=== PATIENT | female | born 1980 | race Native Hawaiian/Other Pacific Islander ===

== ENCOUNTER 2016-10-27 23:02 | Inpatient (IN) | payer OTHER ==
[2016-10-27 23:07] VITALS: BMI 25.5
--- NOTE | 2016-10-27 23:09 | OBHP ---
Datetime: 10/27/2016 23:05 IP Adm Impression: Term, intrauterine ; No Active Labor; Ruptured Membranes IP Admit Plan: Admit to unit; Initiate labor protocol Admit Comment, IP Provider: at 39+weeks came with c/o srom at 9.15 pn, no ctxs, vb, +fm. obhx 1 x pmh de med pnv all nkda psh de soch de sse +pooling,+nitrazine a/p at 39weeks with prom. admit to l_d npo/ivf labs cytotec cont daren and efm pain reuben anticipay Pelvic Type - PN: Adequate Extremities - PN: Normal Abdomen - PN: Normal Back - PN: Normal Breast - PN: Normal Lungs - PN: Normal Heart - PN: Normal Thyroid - PN: Normal Neurologic - PN: Normal HEENT - PN: Normal General - PN: Normal FHR - Baseline A Provider: 130 Amniotic Fluid Color, Provider: Clear Membranes, Provider: Ruptured Contraction Comments Provider: occ Comments, ACOG Physical Exam: gravid,non ext no edema,no calf ten Pool Provider: Positive Nitrazine Provider: Positive IP Hx Assessment: The History has been Reviewed and is Current Vital Signs Provider: Reviewed; Within Normal Limits IP Chief Complaint: Suspected ruptured membranes NICHD Variability Prov Fetus A: Moderate 6-25bpm NICHD Accel Fetus A IP Provider: [id number] FHR Category Provider Fetus A: Category I Dilatation, Provider: 1 Effacement, Provider: 50 Station, Provider: -3 Genitourinary Exam: Normal DTRs - PN: Normal
[2016-10-27] MEDS ORDERED: Nalbuphine 20 mg/ml Inj (1 ml) IVP PRN (23:15)
[2016-10-27] MEDS: Lactated Ringer's 1,000 ML IV SCH (23:43)
[2016-10-27 23:45] LABS: BASO % 0.3 % (0.0-2.0); EOS # 0.1 K/uL (0.0-0.7); EOS % 0.9 % (0.0-4.0); HEMATOCRIT 35.7 % (34.0-47.0); LYMPH # 1.7 K/uL (1.0-4.3); LYMPH % 20.9 % (20.0-40.0); MEAN CORPUSCULAR HEMOGLOBIN 33.4 pg (27.0-31.0); MEAN CORPUSCULAR HGB CONC 34.9 g/dL (33.0-37.0); MONO # 0.5 K/uL (0.0-0.8); MONO % 6.5 % (0.0-10.0); NRBC % 0.1 % (0.0-2.0); RED CELL DISTRIBUTION WIDTH 12.8 % (11.5-14.5); WHITE BLOOD COUNT 8.2 K/uL (4.8-10.8)
[2016-10-27 23:52] LABS: CHLORIDE 100 mmol/L (98-107)
[2016-10-27 23:53] LABS: MEAN CELL VOLUME 95.6 fL (81.0-99.0); POTASSIUM 3.6 mmol/L (3.6-5.2); SODIUM 135 mmol/L (132-148)
[2016-10-27 23:55] LABS: ALB/GLOB RATIO 1.1 (1.0-2.1); ALKALINE PHOSPHATASE 112 U/L (38-126); ALT/SGPT 20 U/L (9-52); AST/SGOT 19 U/L (14-36); BILIRUBIN,TOTAL 0.6 mg/dL (0.2-1.3); BLOOD UREA NITROGEN 11 mg/dL (7-17); CARBON DIOXIDE 22 mmol/L (22-30); GFR AFRICAN-AMERICAN > 60; RBC URINE 4 /hpf (0-3); TOTAL PROTEIN 6.5 g/dL (6.3-8.3); URINE BILIRUBIN NEGATIVE (NEGATIVE); URINE BLOOD NEGATIVE (NEGATIVE); URINE COLOR Yellow (YELLOW); URINE GLUCOSE (UA) NORMAL (Normal); URINE KETONE NEGATIVE (NEGATIVE); URINE LEUKOCYTE ESTERASE 3+ Leu/uL (Negative); URINE PROTEIN NEGATIVE (NEGATIVE); URINE UROBILINOGEN NORMAL mg/dL (0.2-1.0); WBC URINE 31 /hpf (0-5)
[2016-10-27 23:56] LABS: CALCIUM 8.9 mg/dl (8.6-10.4); GLUCOSE,RANDOM 91 mg/dL (65-105)
[2016-10-28] MEDS ORDERED: Nalbuphine 20 mg/ml Inj (1 ml) ONE (03:12)
[2016-10-28] MEDS ORDERED: Oxytocin 30 UNIT 30 UNITS/500 ML BAG IV PRN (03:30)
[2016-10-28] MEDS ORDERED: Oxytocin 30 UNIT 30 UNITS/500 ML BAG IV ONE (03:33)
[2016-10-28] MEDS ORDERED: Bupivacaine 0.125%/FentaNYL 200 ML EPI ONE (05:59)
[2016-10-28] MEDS: Lactated Ringer's 1,000 ML IV SCH (06:00)
[2016-10-28] MEDS ORDERED: Oxycodone/Acetaminophen 5/325 mg Tab PO PRN ×2 (06:38)
[2016-10-28] MEDS ORDERED: Oxytocin 30 UNIT 30 UNITS/500 ML BAG IV SCH (06:45)
--- NOTE | 2016-10-28 07:25 | OBDS ---
DELIVERY PERSONNEL Delivery Doctor: Zonia Turner MD Licensed Practical Nurse Clinic Nurse: Krystal Neil RN Anesthesiologist: Baljinder Joe MD MATERNAL INFORMATION Delivery Anesthesia: Epidural Medications in Delivery: Pitocin 20 units IV Estimated Blood Loss (ml): 200 Placenta Cultured: No Maternal Complications: None Provider Comments: pt was fully dilated and pushign, atrumatic, spontaneous deiveyr of head in SHAYNA p osition, nuchal and body cord x 2 tight noted and released. atrumatic, spontaneous delivery of anteri or followed by posterior shoulder followed by delivery of body. both oral and nasal passages of baby were bulb suctioned. umbilcal cord was clamped and cut. Baby handed to mother on abodmen with RN carlotta stance. Stem Cell cord blood collected. COrd blood collected x 2. Spontanous delivery of intact place nta with membranes. Bimanal massage, Fundus firm, lower uteirne segment boggy, Methergine IM x 1 giv ne. Lower uterine segment firm. good hemostatis. first degree perineal laceationed noted and repaied with 2-0 chormic. Good hemostaiss, no complications live male ifnat agpars 9.9 weight of 6lbs 3 ounces ebl 200ml LABOR SUMMARY EDC: 11/09/2016 00:00 No. Babies in Womb: 1 Attempted: No Labor Anesthesia: Epidural LABOR INFORMATION Reason for Induction: Not Applicable Onset of Labor: 10/27/2016 21:00 Complete Dilatation: 10/28/2016 06:17 Cervical Ripening Agents: Cytotec @ (Annotations: 50 mcg PO) Oxytocin: Augmentation Group B Beta Strep: Negative Antibiotics # of Doses: 0 Steroids Given: None Reason Steroids Not Administered: Not Applicable MEMBRANES Membranes Rupture Method: Spontaneous Rupture of Membranes: 10/27/2016 21:00 Length of Rupture (hrs): 9.62 Amniotic Fluid Color: Clear Amniotic Fluid Amount: Moderate Amniotic Fluid Odor: Normal STAGES OF LABOR Stage 1 hrs: 9 Stage 1 min: 17 Stage 2 hrs: 0 Stage 2 min: 20 Stage 3 hrs: 0 Stage 3 min: 8 Total Time in Labor hrs: 9 Total Time in Labor min: 45 VAGINAL DELIVERY Episiotomy: None Laceration Extension: First Degree Laceration Type: Perineal Laceration Repair Note: first degree perineal laceration with 2-0 chormic Initial Vag Sponge Count: 10 Initial Vag Sharps Count: 2 Sponge Count Correct: Yes; Vaginal Sweep Performed BABY A INFORMATION Infant Delivery Date/Time: 10/28/2016 06:37 Method of Delivery: Vaginal Born in Route : No : N/A SHOULDER DYSTOCIA BABY A Infant Delivery Date/Time: 10/28/2016 06:37 PRESENTATION/POSITION BABY A Presentation: Cephalic Cephalic Presentation: Vertex PLACENTA INFORMATION BABY A Placenta Delivery Time : 10/28/2016 06:45 SCORES BABY A Heart Rate 1 min: >100 bpm Resp Effort 1 min: Good Cry Reflex Irritability 1 min: Cough or Sneeze or Pulls Away Muscle Tone 1 min: Active Motion Color 1 min: Body [place], Extremities Blue SCORE 1 MIN: 9 Heart Rate 5 min: >100 bpm Resp Effort 5 min: Good Cry Reflex Irritability 5 min: Cough or Sneeze or Pulls Away Muscle Tone 5 min: Active Motion Color 5 min: Body [place], Extremities Blue SCORE 5 MIN: 9 INFANT INFORMATION BABY A Gestational Age at Delivery: 38.0 Gestational Status: Term Outcome : Liveborn Condition : Stable Sex: Male IDENTIFICATION/MEDS BABY A ID Band Number: [id number] ID Band Location: Left Leg; Left Arm Sensor Applied: Yes Sensor Number: [id number] Sensor Location : Cord Clamp Vitamin K Given : Aquamephyton 1 mg IM; Left Thigh Erythromycin Given: Given Both Eyes WEIGHT/LENGTH BABY A Birthweight (gms): 2800 Weight (lb): 6 Weight (oz): 3 Length Inches: 19.00 Length cms: 48.3 CORD INFORMATION BABY A No. Cord Vessels: 3 Nuchal Cord : Around Neck x2, Loose Cord Blood Taken: Yes Banking/Donate Info: CBR Infant Suction: Mouth ASSESSMENT BABY A Infant Complications: None Complications Other: none Physical Findings at Delivery: Within Normal Limits Infant Respirations: Appears Normal Pneumatic [place]/ALS Called : No Care By: Franklyn Transferred To: Remains with Mother
[2016-10-28] MEDS: Benzocaine/Menthol 20%-0.5% Topical Spray (60 ml) TOP PRN (09:38)
--- NOTE | 2016-10-29 07:02 | OBPPN ---
Datetime: 10/29/2016 06:59 PP Pain Prov: Within normal limits PP Nausea Prov: Denies PP Flatus Prov: Yes PP BM Prov: No PP Breasts Prov: Normal PP Heart Prov: Normal PP Lungs Prov: Normal PP Abdomen/Uterus Prov: Normal PP Lochia Prov: Normal PP Vulva/Perineum Prov: Normal PP CVA Tenderness Prov: Normal PP Extremities Prov: Normal PP C/S Incision Prov: Not Applicable PP Progress Prov: Normal PP Impression Prov: Normal progression PP Plan Prov: Continue present management PP Progress Note Prov: Pt seen and examined and reports pain is controlled with medication. Pt is am buating, voiiding, passing flatus, no bm. pt is breast feeding, denies any feelings of dizzyness, lig htheadness, dizzyness. VSS PE ;see above A/P s/P PPD #1 doing well pain managment f/u am labs regular diet encouarge ambuation / voiding IP PP Procedures: None Vital Signs Provider PP: Reviewed; Within Normal Limits
--- NOTE | 2016-10-29 07:03 | OBDCSUM ---
Datetime: 10/29/2016 07:01 Discharged to, Provider: Home Follow up at, Provider: Dr Turner Disch Instr Activity: Normal activity Disch Instr Diet: Regular Discharge Instructions, Provider: Routine instructions given Discharge Diagnosis, Provider: Term Delivered Discharge Time: 10/30/2016 10:01 Follow up in weeks, Provider: 6 weeks, or prior to departure Disch Referrals: None Contraception discussed, Prov: Yes Discharge Comment, Provider: d/c in am precaution given Contraception after Delivery: Not Planning to Use
[2016-10-29 08:01] LABS: HEMATOCRIT 36.6 % (34.0-47.0); MEAN CELL VOLUME 96.6 fL (81.0-99.0); MEAN CORPUSCULAR HEMOGLOBIN 32.9 pg (27.0-31.0); MEAN CORPUSCULAR HGB CONC 34.1 g/dL (33.0-37.0); MEAN PLATELET VOLUME 8.9 fL (7.2-11.7); RED CELL DISTRIBUTION WIDTH 13.1 % (11.5-14.5); WHITE BLOOD COUNT 10.5 K/uL (4.8-10.8)
--- NOTE | 2016-10-30 00:36 | OBPPN ---
Datetime: 10/30/2016 00:33 PP Pain Prov: Within normal limits PP Nausea Prov: Denies PP Flatus Prov: Yes PP BM Prov: Yes PP Breasts Prov: Normal PP Heart Prov: Normal PP Lungs Prov: Normal PP Abdomen/Uterus Prov: Normal PP Lochia Prov: Normal PP Vulva/Perineum Prov: Normal PP CVA Tenderness Prov: Normal PP Extremities Prov: Normal PP C/S Incision Prov: Not Applicable PP Progress Prov: Normal PP Impression Prov: Normal progression PP Plan Prov: Discharge PP Progress Note Prov: Pt seen and examined and reports pain is controlled with medication. Pt is am buating, voiiding, passing flatus, no bm. pt is breast feeding, denies any feelings of dizzyness, lig htheadness, dizzyness. VSS PE ;see above A/P s/P PPD #2 doing well, stable for discharge d/c home rto 6 week precation given IP PP Procedures: None Vital Signs Provider PP: Reviewed; Within Normal Limits
[2016-10-30] MEDS: Benzocaine/Menthol 20%-0.5% Topical Spray (60 ml) TOP PRN (09:30)
[2016-10-30 09:47] VITALS: BP 115/61; PULSE 71; RESP 18; TEMP 98.9; O2SAT 98
== END 2016-10-30 12:30 | disposition home or self-care (01) | DRG 774 ==
LOC: C.EROB 23:02 → C.4D 23:08 → C.4M 10-28 08:45
PROVIDERS: ADMIT Obstetrics & Gynecology; ATTEND Obstetrics & Gynecology
PROC: 0HQ9XZZ Repair Perineum Skin, External Approach (ICD-10-PCS; principal; 2016-10-28)
PROC: 10E0XZZ Delivery of Products of Conception, External Approach (ICD-10-PCS; 2016-10-28)
DX: O70.0 First degree perineal laceration during delivery (principal); O90.89 Other complications of the puerperium, not elsewhere classified; N85.8 Other specified noninflammatory disorders of uterus; O66.0 Obstructed labor due to shoulder dystocia; Z37.0 Single live birth; O69.1XX0 Labor and delivery complicated by cord around neck, with compression, not applicable or unspecified; O69.2XX0 Labor and delivery complicated by other cord entanglement, with compression, not applicable or unspecified; Z3A.39 39 weeks gestation of pregnancy